=== PATIENT | male | born 1990 | race Caucasian/White ===

== ENCOUNTER → 2019-09-29 | Outpatient (REF) | payer SELFPAY ==
[2019-09-29 14:18] LABS: INFLUENZA A AMPLIFICATION POSITIVE (NEGATIVE); INFLUENZA B AMPLIFICATION NEGATIVE (NEGATIVE)
== END ==
LOC: M LAB REF 12:18
PROVIDERS: ATTEND Physician Assistant Medical
DX: J11.1 Influenza due to unidentified influenza virus with other respiratory manifestations (principal)

== ENCOUNTER 2021-05-21 21:01 | Emergency (ER) | payer MEDICAID, OTHER ==
[~2021-05-21] VITALS: Ht 172.7 cm; Wt 76.0 kg
[2021-05-21 21:05] VITALS: BP 131/75
[2021-05-21] MEDS ORDERED: TETRACAINE 0.5% OPHTH SOLN 4ML OS ONE (22:45)
[2021-05-21] MEDS ORDERED: CIPROFLOXACIN 0.3% OPHTH SOLN 2.5ML OS ONE (22:55)
[2021-05-21] MEDS ORDERED: CIPR0.3S6 OS (23:00)
== END 2021-05-21 23:19 | disposition home or self-care (01) ==
LOC: M ED 21:01
DX: S05.92XA Unspecified injury of left eye and orbit, initial encounter (principal); T15.02XA Foreign body in cornea, left eye, initial encounter; Y92.89 Other specified places as the place of occurrence of the external cause; F12.20 Cannabis dependence, uncomplicated